=== PATIENT | female | born 1985 | race Caucasian/White ===

== ENCOUNTER 2018-02-06 17:15 | Emergency (ER) | payer OTHER ==
[~2018-02-06] VITALS: Ht 167.6 cm; Wt 68.2 kg
[2018-02-06 17:58] LABS: BASOPHILS # (AUTO) 0.02 x10^3/uL (0-0.1); BASOPHILS % (AUTO) 0 % (0-1); EOSINOPHILS # (AUTO) 0.13 x10^3/uL (0-0.4); EOSINOPHILS % (AUTO) 2 % (1-7); LYMPHOCYTES # (AUTO) 1.76 x10^3/uL (1-3.4); LYMPHOCYTES % (AUTO) 21 % (22-44); MD NO; MEAN CORPUSCULAR HEMOGLOBIN 26.8 pg (27.0-34.8); MEAN CORPUSCULAR HGB CONC 33.1 g/dL (32.4-35.8); MEAN CORPUSCULAR VOLUME 80.9 fL (80-100); MEAN PLATELET VOLUME 8.3 fL (7.4-10.4); MONOCYTES # (AUTO) 0.44 x10^3/uL (0.2-0.8); MONOCYTES % (AUTO) 5 % (2-9); NEUTROPHILS # (AUTO) 6.14 x10^3/uL (1.8-6.8); NEUTROPHILS % (AUTO) 72 % (42-75); PLATELET COUNT 272 x10^3/uL (130-400); RED BLOOD COUNT 4.34 x10^6/uL (3.82-5.3); RED CELL DISTRIBUTION WIDTH 14.7 % (9.6-15.2)
[2018-02-06 18:09] LABS: ALANINE AMINOTRANSFERASE 18 U/L (12-78); ALBUMIN 3.3 g/dL (3.4-5.0); ANION GAP 6 mmol/L (5-15); CHLORIDE 112 mmol/L (98-107); CREATININE 0.61 mg/dL (0.55-1.02)
[2018-02-06 18:13] LABS: ALKALINE PHOSPHATASE 46 U/L (45-117); BILIRUBIN,TOTAL 0.5 mg/dL (0.2-1.0); TOTAL PROTEIN 7.2 g/dL (6.4-8.2)
[2018-02-06 19:16] LABS: MICROSCOPIC INDICATED
[2018-02-06 19:17] LABS: CULTURE INDICATED? YES
[2018-02-06 20:04] VITALS: BP 124/71
== END 2018-02-06 20:06 | disposition home or self-care (01) ==
LOC: ED 20:00
DX: N30.00 Acute cystitis without hematuria (principal); R10.30 Lower abdominal pain, unspecified
CPT/HCPCS: 36415; 76830; 80053; 81001; 83690; 84703; 85025; 87086; 87106; 99285

== ENCOUNTER 2020-01-20 20:56 | Emergency (ER) | payer OTHER ==
[~2020-01-20] VITALS: Ht 167.6 cm; Wt 73.4 kg
[2020-01-20 20:58] VITALS: BP 127/77
--- NOTE | 2020-01-20 21:10 | NUR ---
34 YEAR OLD FEMALE TO ED FOR LEFT ARM PAIN. SHE STATES SHE SLIPPED AT WORK TODAY BUT DENIES TRAUMA. SHE SAYS SHE CAUGHT HERSELF. HER PAIN IS IN HER LEFT SHOULDER THAT WORSENS WITH ABDUCTION. NO OBVIOUS DEFORMITIES NOTED.
[2020-01-20] MEDS ORDERED: IBUPROFEN 800 MG TABLET PO ONE (21:30)
[2020-01-20] MEDS ORDERED: METHOCARBAMOL 750 MG TABLET PO ONE (21:30)
[2020-01-20] MEDS ORDERED: METHOCARBAMOL 750 MG TABLET ONE (21:35)
[2020-01-20] MEDS ORDERED: IBUPROFEN 800 MG TABLET ONE (21:35)
--- NOTE | 2020-01-20 21:44 | NUR ---
MEDICATED PER MAR.
== END 2020-01-20 22:19 | disposition home or self-care (01) ==
LOC: ED 22:00
DX: G89.11 Acute pain due to trauma (principal); M25.512 Pain in left shoulder; W01.0XXA Fall on same level from slipping, tripping and stumbling without subsequent striking against object, initial encounter; Y93.89 Activity, other specified; Y92.69 Other specified industrial and construction area as the place of occurrence of the external cause; Y99.0 Civilian activity done for income or pay
CPT/HCPCS: 99283

== ENCOUNTER 2020-10-17 02:21 | Emergency (ER) | payer SELFPAY ==
[~2020-10-17] VITALS: Ht 167.6 cm; Wt 60.8 kg
--- NOTE | 2020-10-17 02:39 | NUR ---
PT BIB EMS FOR ALTERED MENTATION. PER EMS PTS FAMILY MEMBER STATES SHE HAD BEEN OUT DRINKING AND CAME HOME VOMITING. PT REMOVED HER CLOTHES AT THAT TIME AND WAS ACTING ABNORMALLY PER FAMILY. . PER EMS PT HAD 2 EPISODES WHERE SHE BECAME RIGID AND SPO2 DROPPED INTO THE UPPER 80'S. PT RESPONDS TO PAINFUL STIMULI BUT NO VERBAL RESPONSES. PER EMS, FAMILY STATES SHE HAS NO HX OF MEDICAL EMS STARTED PIV 20 GA RIGHT HAND. PT GIVEN 4 MG ZOFRAN. BLOOD SUGAR 112 BY EMS. NASAL AIRWAY IN PLACE. PT HAS DMINISHED GAG REFLEX. MD BEDSIDE TO ASSESS.
[2020-10-17] MEDS ORDERED: SODIUM CHLORIDE FLUSH 10ML SYR IVF ONE (03:00)
[2020-10-17] MEDS ORDERED: SODIUM CHLORIDE 0.9% 1,000ML IVBOLUS ONE (03:00)
[2020-10-17 03:05] LABS: BASOPHILS % (AUTO) 0 % (0-1); EOSINOPHILS % (AUTO) 0 % (1-7); LYMPHOCYTES % (AUTO) 12 % (22-44); MEAN PLATELET VOLUME 7.5 fL (7.4-10.4); MONOCYTES % (AUTO) 4 % (2-9); NEUTROPHILS % (AUTO) 83 % (42-75); PLATELET COUNT 294 x10^3/uL (130-400); RED BLOOD COUNT 4.37 x10^6/uL (3.82-5.3)
[2020-10-17 03:17] LABS: ALBUMIN 3.6 g/dL (3.4-5.0); ANION GAP 11 mmol/L (5-15); CALCIUM 7.6 mg/dL (8.5-10.1); CHLORIDE 109 mmol/L (98-107)
[2020-10-17 03:20] LABS: ALANINE AMINOTRANSFERASE 30 U/L (12-78); ALKALINE PHOSPHATASE 55 U/L (45-117); BILIRUBIN,TOTAL 0.7 mg/dL (0.2-1.0); CREATININE 0.49 mg/dL (0.55-1.02); TOTAL PROTEIN 7.4 g/dL (6.4-8.2)
[2020-10-17 06:01] VITALS: BP 115/71
== END 2020-10-17 06:05 | disposition home or self-care (01) ==
LOC: ED 05:30
DX: R41.82 Altered mental status, unspecified (principal); F10.120 Alcohol abuse with intoxication, uncomplicated; G31.2 Degeneration of nervous system due to alcohol; R94.31 Abnormal electrocardiogram [ECG] [EKG]; Y90.0 Blood alcohol level of less than 20 mg/100 ml
CPT/HCPCS: 36415; 80053; 80320; 84703; 85025; 93005; 99284; J7030; G0480